=== PATIENT | female | born 1955 | race Caucasian/White ===

== ENCOUNTER 2016-05-06 12:26 | Emergency (ER) | payer OTHER ==
[~2016-05-06] VITALS: Ht 165.1 cm; Wt 68.0 kg
--- NOTE | 2016-05-06 12:40 | NUR ---
Pt ambulatory to bed 5, dr henson at bedside for exam.
--- NOTE | 2016-05-06 13:18 | NUR ---
Patient is not found in the room, eloped from our ER dept before examined by .
== END 2016-05-06 13:20 | disposition left against medical advice (07) ==
LOC: ER 12:26
DX: M79.621 Pain in right upper arm (principal)
CPT/HCPCS: A4663